=== PATIENT | female | born 1970 | race Two or more races ===

== ENCOUNTER 2021-08-24 00:08 | Emergency (ER) | payer BC ==
[~2021-08-24] VITALS: Ht 170.2 cm; Wt 87.1 kg
--- NOTE | 2021-08-24 00:30 | NUR ---
[id number]. GEN ABDOMINAL PAIN X TODAY PT HAD A LAPOROSCOPIC PELVIC CYST REMOVAL TODAY. NOT ABLE TO GET PAIN MED PRESCRIPTION. PT A/OX4. TOLERATING R/A WELL WITH NO SOB. DRESSING TO LOWER ABD KEPT C/D/I; NO BLEEDING NOTED. CONNECTED PT TO POX AND MONITOR. SAFETY MEASURES IN PLACE.
--- NOTE | 2021-08-24 00:49 | NUR ---
Cornelia saldivar in [facility] - 08/24/21 at 0104 by MAGALIE PT TAKEN TO CT VIA DEBRA
[2021-08-24] MEDS ORDERED: MORPHINE SULFATE INJ 4 MG/ML DISP.SYRIN ONE ×2 (00:50→04:12)
[2021-08-24] MEDS ORDERED: IOHEXOL-300 100 ML VIAL IV ONE (00:53)
[2021-08-24] MEDS ORDERED: IV NS 0.9% 250 ML IV ONE (00:53)
[2021-08-24] MEDS ORDERED: IV NS 0.9% 1,000 ML BAG IV ONE (01:00)
[2021-08-24] MEDS ORDERED: MORPHINE SULFATE INJ 2 MG/ML DISP.SYRIN IV ONE ×2 (01:00→04:00)
--- NOTE | 2021-08-24 01:03 | NUR ---
LAC #20G S/L; BLOOD COLLECTED AND SENT TO LAB. PT NOT ABLE TO URINATE AT THIS TIME. WILL F/U WITH URINE SAMPLE.
[2021-08-24 01:19] LABS: BASOPHILS % (AUTO) 0.2 % (0.0-2.0); HEMATOCRIT 40 % (33-45); HEMOGLOBIN 12.9 g/dL (11.5-14.8); LYMPHOCYTES # (AUTO) 0.3 K/uL (0.8-4.8); LYMPHOCYTES % (AUTO) 2.3 % (20.0-44.0); MEAN CORPUSCULAR HGB CONC 32 g/dl (31.0-36.0); MEAN CORPUSCULAR VOLUME 82 fL (82-100); MONOCYTES # (AUTO) 0.5 K/uL (0.1-1.30); MONOCYTES % (AUTO) 3.8 % (2.0-12.0); NEUTROPHILS # (AUTO) 13.6 K/uL (1.8-8.9); NEUTROPHILS % (AUTO) 93.7 % (43.0-81.0); PLATELET COUNT (AUTO) 279 K/uL (150-450); RED BLOOD CELL COUNT(AUTO) 4.93 MIL/uL (4.0-5.2); WHITE BLOOD COUNT (AUTO) 14.5 K/uL (4.3-11.0)
[2021-08-24 01:40] LABS: CALCIUM, SERUM 8.7 mg/dL (8.5-10.1); POTASSIUM 3.9 mmol/L (3.5-5.1)
[2021-08-24 01:44] LABS: ALBUMIN 3.7 g/dL (3.4-5.0); BILIRUBIN,DIRECT 0.2 mg/dL (0.0-0.2); BILIRUBIN,TOTAL 0.8 mg/dL (0.2-1.0); TOTAL PROTEIN, SERUM 7.6 g/dL (6.4-8.2)
--- NOTE | 2021-08-24 02:02 | NUR ---
PT TAKEN TO CT VIA DEBRA
--- NOTE | 2021-08-24 02:16 | NUR ---
PT RETURNED TO ER BED 16
--- NOTE | 2021-08-24 04:32 | NUR ---
URINE COLLECTED AND SENT TO LAB
[2021-08-24 04:47] LABS: BILIRUBIN,URINE NEGATIVE (NEGATIVE); LEUKOCYTE ESTERASE ,URINE NEGATIVE (NEGATIVE); NITRITE, URINE NEGATIVE (NEGATIVE); PROTEIN,URINE NEGATIVE (NEGATIVE); UGLUCOSE >=1000 mg/dL (NEGATIVE); UROBILINOGEN,URINE 0.2 EU/dL (0.2)
[2021-08-24 04:51] LABS: COLOR,URINE YELLOW (YELLOW)
[2021-08-24] MEDS ORDERED: HYDR-3980 PO (05:08)
[2021-08-24 05:29] VITALS: BP 118/61
--- NOTE | 2021-08-24 05:29 | NUR ---
Patient discharged to home in stable condition. RX Written and verbal after care instructions given. Patient verbalizes understanding of instruction. IV removed. Catheter intact and site benign. Pressure and 4x4 applied to site. No bleeding noted. PT ambulatory with a steady gait
== END 2021-08-24 05:30 | disposition home or self-care (01) ==
LOC: ER 00:13
DX: G89.18 Other acute postprocedural pain (principal); R10.84 Generalized abdominal pain; Z87.42 Personal history of other diseases of the female genital tract; Z79.899 Other long term (current) drug therapy
CPT/HCPCS: 36415; 74177; 80048; 80076; 81003; 83690; 84703; 85025; 96361; 96374; 96376; 99285; J2270 ×2; J7030; J7050; Q9967